=== PATIENT | female | born 1965 | race Caucasian/White ===

== ENCOUNTER 2021-07-05 16:24 | Outpatient (REF) | payer BC, SELFPAY ==
--- NOTE | ~2021-07-05 | XR_ITS ---
EXAMINATION: RIGHT HIP AND SACROILIAC JOINT X-RAYS CLINICAL INFORMATION: Pain COMPARISON: None TECHNIQUE: 2 views of the right hip. 3 views of the sacroiliac joints. FINDINGS: Right hip: Bone alignment is normal. No fracture or dislocation is seen. The joint space is normal. There is a round lucency in the lateral femoral neck probably representing a [place]ar pit. Faint soft tissue calcification adjacent to the greater trochanter. Bilateral sacroiliac joints: Bone alignment is normal. No fracture or dislocation is seen. The sacroiliac joints are normal. XR/XR hip RT min 2V IMPRESSION: Right hip: Faint soft tissue calcification adjacent to the greater trochanter otherwise unremarkable exam. Sacroiliac joints: Unremarkable exam.
--- NOTE | ~2021-07-05 | XR_ITS ---
EXAMINATION: RIGHT HIP AND SACROILIAC JOINT X-RAYS CLINICAL INFORMATION: Pain COMPARISON: None TECHNIQUE: 2 views of the right hip. 3 views of the sacroiliac joints. FINDINGS: Right hip: Bone alignment is normal. No fracture or dislocation is seen. The joint space is normal. There is a round lucency in the lateral femoral neck probably representing a [place] pit. Faint soft tissue calcification adjacent to the greater trochanter. Bilateral sacroiliac joints: Bone alignment is normal. No fracture or dislocation is seen. The sacroiliac joints are normal. XR/XR sacroiliac joint min 3V IMPRESSION: Right hip: Faint soft tissue calcification adjacent to the greater trochanter otherwise unremarkable exam. Sacroiliac joints: Unremarkable exam.
== END 2021-07-05 16:25 | disposition home or self-care (01) ==
LOC: HO.XRAY 16:24
PROVIDERS: Visit Provider Nurse Practitioner Family
DX: R10.31 Right lower quadrant pain (principal); M53.3 Sacrococcygeal disorders, not elsewhere classified; G89.29 Other chronic pain
CPT/HCPCS: 72202; 73502